=== PATIENT | female | born 1990 | race Caucasian/White ===

== ENCOUNTER 2021-02-04 01:26 | Emergency (ER) | payer OTHER ==
[~2021-02-04] VITALS: Ht 162.6 cm; Wt 53.1 kg
[2021-02-04] MEDS ORDERED: NOHOMEMEDICATIONS (01:43)
[2021-02-04 02:34] LABS: ABSOLUTE NEUTROPHILS 2.4 thou/uL (1.4-8.2); BASOPHILS 1.1 % (0.0-2.0); EOSINOPHILS 10.8 % (0.0-3.0); HEMATOCRIT 33.8 % (37.0-47.0); HEMOGLOBIN 11.1 gm/dL (12.0-15.0); LYMPHOCYTES 39.7 % (24.0-44.0); MCH 26.1 pg (26.0-34.0); MCHC 32.9 g/dL (28.0-37.0); MCV 79.2 fL (80.0-100.0); MONOCYTES 8.9 % (1.0-8.0); PLATELET COUNT 203 thou/uL (150-400); POLYS 39.5 % (36.0-66.0); RBC 4.26 mil/uL (4.20-5.00); RDW 16.2 % (10.5-14.5); WBC 6.1 thou/uL (4.0-11.0)
[2021-02-04 02:38] LABS: ANION GAP 10 mmol/L (7-16); BUN 8 mg/dL (7-18); CALCIUM 8.7 mg/dL (8.5-10.1); CHLORIDE 104 mmol/L (98-107); CO2 25 mmol/L (21-32); CREATININE 0.6 mg/dL (0.6-1.0); GLUCOSE 96 mg/dL (74-106); POTASSIUM 3.8 mmol/L (3.5-5.1); SODIUM 139 mmol/L (136-145)
[2021-02-04 02:47] LABS: ALBUMIN 3.9 g/dL (3.4-5.0); DIRECT BILIRUBIN < 0.1 mg/dL (<0.1-0.2); SGOT 19 U/L (15-37); SGPT 22 U/L (30-65); TOTAL BILIRUBIN 0.2 mg/dL (0.2-1.0); TOTAL PROTEIN 7.4 g/dL (6.4-8.2); TROPONIN-I <0.06 ng/mL (<0.06)
[2021-02-04] MEDS ORDERED: MOBIC15 MG PO (04:11)
[2021-02-04] MEDS ORDERED: PROAIR HFA8.5 GM INH (04:23)
[2021-02-04 04:26] VITALS: BP 117/78
--- NOTE | 2021-02-04 07:18 | EKG ---
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: RUKHSANA : 1990 Requested By: Maria Fernanda Grande Order Number: [id number] MD: Chas Srinivasan Measurements Intervals [place] Rate: 77 P: 72 NE: 128 QRS: 69 QRSD: 84 T: -1 QT: 371 QTc: 420 Interpretive Statements Sinus rhythm Left atrial enlargement Borderline repolarization abnormality No previous ECG available for comparison Electronically Signed On 02-04-2021 7:18:02 CDT by Chas Srinivasan [email or web address] <ELECTRONICALLY SIGNED> By: Chas Srinivasan MD, [facility] 02/04/21 [id number] Chas Srinivasan MD, FACC /EPI
== END 2021-02-04 04:30 | disposition home or self-care (01) ==
LOC: ER 01:26
PROVIDERS: Emergency Medicine
DX: R07.89 Other chest pain (principal); R06.02 Shortness of breath; F17.210 Nicotine dependence, cigarettes, uncomplicated; Z98.890 Other specified postprocedural states; Z88.0 Allergy status to penicillin